=== PATIENT | male | born 1975 | race Caucasian/White ===

== ENCOUNTER 2018-11-11 12:02 | Inpatient (IN) ==
[2018-11-11 12:36] LABS: BILIRUBIN URINE NEGATIVE (NEGATIVE); BLOOD URINE NEGATIVE (NEGATIVE); CLARITY SL. CLOUDY (CLEAR); COLOR YELLOW; GLUCOSE URINE NEGATIVE (NEGATIVE); KETONE URINE NEGATIVE (NEGATIVE); LEUKOCYTES URINE TRACE (NEGATIVE); NITRITE URINE NEGATIVE (NEGATIVE); PH URINE 6.5; PROTEIN URINE TRACE mg/dL (NEGATIVE); UROBILINOGEN URINE NORMAL
[2018-11-11 12:37] LABS: URINE SOURCE CLEAN CATCH
[2018-11-11 12:42] LABS: URINE WBC <10 /HPF (<10)
[2018-11-11 12:46] LABS: URINE RBC <10 /HPF (<10)
[2018-11-11 12:49] LABS: URINE BACTERIA 1+ /HFP; URINE YEAST NONE SEEN /HPF
[2018-11-11 13:03] LABS: URINE CAST NONE SEEN /LPF
[2018-11-11 13:04] LABS: URINE CRYSTAL NONE SEEN /HPF; URINE EPITHELIAL CELLS <10 /HPF (<10)
[2018-11-11] MEDS ORDERED: NS 1,000 ML IV ONE (15:38)
[2018-11-11] MEDS ORDERED: TORADOL IV ONE (15:39)
[2018-11-11] MEDS ORDERED: ZOSYN 3.375 GM in NS 50 ML IV ONE ×2 (16:04→16:36)
--- NOTE | 2018-11-11 16:05 | Diag Imaging Result Doc PS360 ---
EXAM: CT ABDOMEN/PELVIS W/O CONTRAST HISTORY: L flank pain; LLQ pain TECHNIQUE: CT abdomen and pelvis without contrast. COMPARISON: None. FINDINGS: There is fatty infiltration of the liver no calcified gallstones or adjacent inflammation normal spleen, pancreas, and adrenal glands. Normal kidneys. No hydronephrosis. Normal aorta. There are prominent inflammatory changes noted the junction of the descending and sigmoid colon. There are scattered diverticula in this location. There is a poorly defined area containing fluid and air at the inflammatory site measuring 3.8 x 4.5 cm. No bowel obstruction. Urinary bladder is not distended. IMPRESSION: Diverticulitis at the junction of the descending and sigmoid colon with focal perforation and likely developing abscess. This report was discussed with Dr Hendricks in the [place] emergency room on 11/11/2018 at 4:00 PM and was readback. This exam was performed using automated exposure control, adjustment of mA or kV according to patient size, and/or use of iterative reconstruction technique. Electronically signed by Sreedhar Dubois 11/11/2018 4:02 PM
--- NOTE | 2018-11-11 16:10 | PROVIDER DOCUMENTATION ---
This chart was entered by Pura Avilez Scribe, acting as scribe for Leeann Franklin CRNP. HPI-Male Problem - General Source: patient - History of Present Illness-Male Location of Complaint: reports: left flank Radiation: reports: LLQ Quality of Pain: reports: burning Severity in ED: reports: moderate Onset/Duration: reports: 1 week ago Timing: reports: still present, constant Context/Activities at Onset: reports: light activity Urinary Symptoms: reports: hesitancy Associated Symptoms: reports: denies symptoms Similar Symptoms Previously?: Yes Recently seen or treated by another doctor?: Yes <Leeann Franklin - Last Filed: 11/11/18 16:36> <Cody Andrews - Last Filed: 11/11/18 16:44> - General Chief Complaint: Flank Pain Stated Complaint: FLANK PAIN Time Seen by Provider: 11/11/18 15:19 Allergies/Adverse Reactions: Patient Allergies Allergy/AdvReac Type Severity Reaction Status Date / Time No Known Allergies Allergy Verified 11/11/18 12:13 Home Medications: Home Medication List Medication Instructions Recorded Confirmed Last Taken Type Gabapentin 300 mg PO TID 11/11/18 11/11/18 Unknown History Hydrocodone/Acetaminophen 1 tab PO TID 11/11/18 11/11/18 Unknown History [Hydrocodone-Acetamin 7.5-325] Ibuprofen 1 tab PO TID PRN 11/11/18 11/11/18 Unknown History Valacyclovir HCl [Valacyclovir] 1 tab PO TID 11/11/18 11/11/18 Unknown History - History of Present Illness-Male Nature of Presenting Problem: Patient is a 43 year old male who presents to the ED with left flank pain rad around to LLQ. Patient states pain started 1 week ago. Patient denies history of kidney stones. Seen by pcp, dx with shingles, given pain meds, states the pain meds are helping, but still having pain, at times breaks out into a sweat. Denies n/v. Denies fever. Denies painful urination, but states difficulty getting stream started at times. (Leeann Franklin) Patient is a 43 year old male who presents to the ED with left flank pain rad around to LLQ. Patient states pain started 1 week ago. Patient denies history of kidney stones. Seen by pcp, dx with shingles, given pain meds, states the pain meds are helping, but still having pain, at times breaks out into a sweat. Denies n/v. Denies fever. Denies painful urination, but states difficulty getting stream started at times. (Pura Avilez) Review of Systems - Adult - REVIEW OF SYSTEMS - ADULT Constitutional: denies: fever Eyes: reports: no symptoms reported Ears, Nose, Mouth & Throat: reports: no symptoms reported Cardiovascular: reports: no symptoms reported Respiratory: reports: no symptoms reported Gastrointestinal: reports: abdominal pain. denies: vomiting Genitourinary: reports: flank pain (left), hesitency. denies: dysuria, hematuria Musculoskeletal: reports: no symptoms reported Integumentary: reports: no symptoms reported Neurological: reports: no symptoms reported Psychiatric: reports: no symptoms reported Endocrine: reports: no symptoms reported Hematologic/Lymphatic: reports: no symptoms reported Allergic/Immunologic: reports: no symptoms reported All Other Systems: Reviewed and Negative <Leeann Franklin - Last Filed: 11/11/18 16:36> Past History - Adult - PAST MEDICAL HISTORY-ADULT Review of Records: reports: Nursing Assessment Review, Medications Reviewed, Social history reviewed & non-contributory. Major Childhood Illnesses: reports: denies history Cardiovascular: reports: HTN Respiratory: reports: denies history Gastrointestinal: reports: denies history Obstetrical/Gynecological: reports: denies history Genitourinary: reports: denies history Musculoskeletal: reports: denies history Neurological: reports: denies history Psychiatric: reports: denies history Endocrine/Immune: reports: denies history Other Conditions: reports: denies history - PRIOR SURGERIES/PROCEDURES Surgical/Procedure History: reports: appendectomy - IMMUNIZATION STATUS Childhood Immunizations: See Nurse Assessment Flu Vaccine: See Nurse Assessment - FAMILY HISTORY Family History: reviewed, not pertinent - SOCIAL HISTORY Smoking: cigarettes, less than 1 pack/day Provider spent 3-5 mins advising pt. on dangers of tobacco.: Discussed manners to quit use, and f/u contacts for add'l counseling. Substance Use: alcohol Alcohol Use Frequency: every day Number of drinks per typical drinking period:: 3-4 drinks Living Situation: family <Leeann Franklin - Last Filed: 11/11/18 16:36> Physical Exam-General - PHYSICAL EXAM-ADULT Initial Vital Signs Reviewed: Yes - CONSTITUTIONAL General Appearance: alert, mild distress - EYES Eyes: PERRL/EOMI, pink conjunctivae - HEAD, EARS, NOSE, MOUTH & THROAT HENMT: normocephalic/atraumatic, moist mucous membranes - NECK Neck: supple - RESPIRATORY Respiratory: chest non-tender, lungs clear, normal breath sounds - CARDIOVASCULAR Cardiovascular: normal peripheral pulses, regular rate, rhythm - GASTROINTESTINAL (ABDOMEN) Abdominal Exam: normal bowel sounds, soft, tenderness (LLQ, mild) - MUSCULOSKELETAL Back Exam: normal inspection, no CVA tenderness, no vertebral tenderness - SKIN Integumentary: normal color, normal turgor, warm/dry, diaphoresis (mild) - NEUROLOGIC Neurologic: grossly normal - PSYCHIATRIC Psych/Mental Status: normal mood/affect, oriented x 3 <Leeann Franklin - Last Filed: 11/11/18 16:36> Progress - PLAN OF CARE/RESULTS Result Diagrams: 11/11/18 16:05 - CT/MRI 1 CT Study: Abdomen, Pelvis Impression: See EMR Report ( EXAM: CT ABDOMEN/PELVIS W/O CONTRAST HISTORY: L flank pain; LLQ pain TECHNIQUE: CT abdomen and pelvis without contrast. COMPARISON: None. FINDINGS: There is fatty infiltration of the liver no calcified gallstones or adjacent inflammation normal spleen, pancreas, and adrenal glands. Normal kidneys. No hydronephrosis. Normal aorta. There are prominent inflammatory changes noted the junction of the descending and sigmoid colon. There are scattered diverticula in this location. There is a poorly defined area containing fluid and air at the inflammatory site measuring 3.8 x 4.5 cm. No bowel obstruction. Urinary bladder is not distended. IMPRESSION: Diverticulitis at the junction of the descending and sigmoid colon with focal perforation and likely developing abscess. This report was discussed with Dr Hendricks in the [place] emergency room on 11/11/2018 at 4:00 PM and was readback. This exam was performed using automated exposure control, adjustment of mA or kV according to patient size, and/or use of iterative reconstruction technique. Electronically signed by Sreedhar Dubois 11/11/2018 4:02 PM 11/11/18 [id number] Interpreting Physician: Sreedhar Dubois MD Dictated Date/Time: 11/11/18 0010 cc: Leeann Franklin; Ren Coleman MD) - CONSULTS/PCP/HOSPITALIST Notification #1 *Consult/PCP/Hospitalist*: Dr. Dubois Time Discussed: 16:03 Reason/Comments: Dr. Hendricks consulted with Dr. Dubois about patient's CT scan. Consult Disposition: other (Dr. Dubois states perforation, possible abscess, free air and diverticulitis) - CHANGE OF SHIFT REPORT (ED Provider) Report Given and Care Transferred to:: [id number]--care transferred to Cody Andrews NP. Time of Transfer: 16:10 <Leeann Franklin - Last Filed: 11/11/18 16:36> - PLAN OF CARE/RESULTS Result Diagrams: 11/11/18 16:05 - CONSULTS/PCP/HOSPITALIST Notification #2 Consult: Dr Hendricks spoke with oncall surgeon Dr Pepe Time Discussed: 16:32 (will review CT scan and call back) Reason/Comments: Called back stating to admit to [facility] and order Zosyn IV Consult Disposition: Admit <Cody Andrews - Last Filed: 11/11/18 16:44> - PLAN OF CARE/RESULTS Progress/Plan/Lab Results: Vital Signs - 8 hr 11/11/18 12:06 11/11/18 16:12 Temperature 98.8 F Pulse Rate 99 H 90 Respiratory Rate 18 18 Blood Pressure 130/95 131/87 O2 Sat by Pulse Oximetry 97 95 Laboratory Results - last 24 hr 11/11/18 11/11/18 12:15 16:05 WBC 17.17 H RBC 4.85 Hgb 14.8 Hct 42.0 MCV 86.6 MCH 30.5 MCHC 35.2 RDW Std Deviation 12.0 Plt Count 335 MPV 9.1 Immature Gran % (Auto) 0.3 Neut % (Auto) 70.5 Lymph % (Auto) 15.0 L [place] % (Auto) 12.0 H Eos % (Auto) 2.0 Baso % (Auto) 0.2 Immature Gran # (Auto) 0.05 H Neut # (Auto) 12.11 H Lymph # (Auto) 2.58 [place] # (Auto) 2.06 H Eos # (Auto) 0.34 Baso # (Auto) 0.03 Urine Source CLEAN CATCH Urine Color YELLOW Urine Clarity SL. CLOUDY A Urine pH 6.5 Ur Specific [place] 1.010 Urine Protein TRACE A Urine Ketones NEGATIVE Urine Blood NEGATIVE Urine Nitrite NEGATIVE Urine Bilirubin NEGATIVE Urine Urobilinogen NORMAL Urine Microscopic RBC <10 Urine WBC TRACE A Urine Microscopic WBC <10 Ur Epithelial Cells <10 Urine Crystals NONE SEEN Urine Bacteria 1+ Urine Casts NONE SEEN Urine Yeast NONE SEEN Urine Glucose NEGATIVE Orders Category Date Time Status Saline Loc NOW Care 11/11/18 15:[address] ABDOMEN/PELVIS W/O CONTRAST [CT] Stat Exams 11/11/18 15:38 Completed BLOOD CULTURE [BLDCUL] Stat Lab 11/11/18 16:23 Ordered CBC WITH ELECTRONIC DIFF [HEME] Stat Lab 11/11/18 16:05 Completed COMPREHENSIVE METABOLIC PANEL [CHEM] Stat Lab 11/11/18 16:[address] W/POSS RFLX CULT [URINALYSIS] Stat Lab 11/11/18 12:15 Completed URINE CULTURE [RM] Routine Lab 11/11/18 13:04 Received 0.9% Sodium Chloride Inj [Ns] 1,000 ml Med 11/11/18 15:38 Discontinued IV 999 mls/hr Ketorolac [Toradol] Med 11/11/18 15:39 Discontinued 10 mg IV NOW ONE Piperacillin/Tazobactam [Zosyn] 3.375 gm Med 11/11/18 16:04 Discontinued 0.9% Sodium Chloride Inj [Ns] 50 ml IV NOW Piperacillin/Tazobactam [Zosyn] 3.375 gm Med 11/11/18 16:36 Active 0.9% Sodium Chloride Inj [Ns] 50 ml IV NOW Transfer/Admit Order [TRANSFER] Routine Transfer 11/11/18 16:37 Ordered Departure <Leeann Franklin - Last Filed: 11/11/18 16:36> - Departure Date of Disposition Decision: 11/11/18 Time of Disposition Decision: 16:38 Certified Medical Emergency: Emergent - Critical Care Note This patient required my direct & personal management of CC.: No <Cody Andrews - Last Filed: 11/11/18 16:44> - Departure DIAGNOSIS: Abscess of sigmoid colon Disposition: [facility] 02 Condition: Fair Referrals and Follow-Ups: Ren Coleman MD [Primary Care Provider] - Attestation - Physician/ JOHNATHAN Attestation Patient care was provided by Advanced Practice Provider:: Yes Advanced Practice Provider:: Leeann Franklin Advanced Practice Provider documentation review:: The Mid-level provider documentation, treatment plan and medical decision making was reviewed by the physician who agrees with all treatment and medical decision making by the MLP. The physician spent face to face time with patient:: No Advanced Practice Provider documentation review:: Supervising physician onsite and consulted in the evaluation and care of this patient. The physician did not have a face to face encounter with the patient. <Leeann Franklin - Last Filed: 11/11/18 16:36> - Physician/ JOHNATHAN Attestation The physician spent face to face time with patient:: Yes Advanced Practice Provider documentation review:: Supervising physician onsite and consulted in the evaluation and care of this patient. The physician did have a face to face encounter with the patient. <Cody Andrews - Last Filed: 11/11/18 16:44> This chart was documented by the indicated scribe, (Pura Avilez Scribe) and accurately reflects the services I performed and decisions made by Rigoberto miller Erica D., CRNP, as attested by the provider's signature.
[2018-11-11 16:25] LABS: BASO# 0.03 X1000 (0.0-0.2); BASO% 0.2 % (0.0-0.8); EOS# 0.34 X1000 (0.0-0.7); HEMOGLOBIN 14.8 g/dL (14.0-18.0); IMM GRAN# 0.05 X1000 (0.0-0.04); IMM GRAN% 0.3 % (0.0-0.5); LYMPH# 2.58 X1000 (1.2-3.4); MCH 30.5 PG (27-31); MCHC 35.2 g/dL (33-37); MCV 86.6 FL (81-99); MONO# 2.06 X1000 (0.11-0.59); MPV 9.1 FL (7.4-10.4); NEUT# 12.11 X1000 (1.4-6.5); NEUT% 70.5 % (42.2-75.2); PLT 335 X1000 (130-400); RBC 4.85 XMIL (4.7-6.1); WBC 17.17 X1000 (4.8-10.8)
[2018-11-11 16:50] LABS: AGAP 12; ALBUMIN 3.6 g/dL (3.5-5.0); ALKALINE PHOSPHATASE 83 U/L (32-122); BUN 8 mg/dL (8-22); CHLORIDE 99 mmol/L (98-107); COSMO 273; CREATININE 0.8 mg/dL (0.7-1.2); ESTIMATED GFR > 60; GLUCOSE 108 mg/dL (70-104); GOT 11 U/L (10-34); GPT 15 U/L (10-44); POTASSIUM 4.1 mmol/L (3.5-5.1); SODIUM 137 mmol/L (136-145); TCO2 26 mmol/L (25-35); TOTAL PROTEIN 7.1 g/dL (6.3-8.3)
[2018-11-11] MEDS: FLAGYL 500 MG/NS 500 MG/100 ML IVPB IV SCH (19:54)
[2018-11-11] MEDS: D5 1/2 NS + KCL 20 MEQ 1,000 ML IV SCH (19:54)
[2018-11-11] MEDS: MORPHINE IV PRN (19:54)
--- NOTE | 2018-11-11 20:41 | HISTORY AND PHYSICAL ---
CHIEF COMPLAINT: Abdominal pain. HISTORY OF PRESENT ILLNESS: This is a 43-year-old male who began having moderately severe left lower quadrant pain 1 week ago. He went to see his primary care doctor who prescribed him valacyclovir for possible shingles. The pain has persisted throughout the weekend and early part of this week, although it has been controlled with Watrous and ibuprofen. He has had some chills, decreased appetite. No nausea, vomiting. No diarrhea or constipation. The pain is not worsened with anything particular. PAST MEDICAL HISTORY: Hypertension. HOME MEDICATIONS: Amlodipine 5 mg p.o. daily. ALLERGIES: Penicillin. PAST SURGICAL HISTORY: Appendectomy, benign subcutaneous mass excision from the neck. SOCIAL HISTORY: He smokes about a pack per day. He drinks 2 to 4 alcoholic drinks per day. He works as a lead machinist. FAMILY HISTORY: Reviewed and noncontributory. REVIEW OF SYSTEMS: Ten systems reviewed negative except as noted above. PHYSICAL EXAMINATION: VITAL SIGNS: Temperature 98.3 degrees, pulse 93, respirations 18, blood pressure 131/89, O2 saturation 98%. GENERAL: Well-developed, well-nourished male in no distress who looks stated age. HEENT: Normocephalic, atraumatic. Extraocular muscles intact. Pupils equal, round, reactive to light. Sclerae anicteric. Moist mucous membranes. No oral lesions. NECK: Supple. No thyromegaly. CV: Regular rate and rhythm. RESPIRATORY: Bilateral equal breath sounds. No work of breathing. GASTROINTESTINAL: Soft, nondistended. No organomegaly or mass. He is obese. He is tender in the left lower quadrant. No rebound or guarding. No hernias. EXTREMITIES: No clubbing, cyanosis, or edema. SKIN: Warm and dry. No rash. MUSCULOSKELETAL: Moves all extremities equally well. LABORATORY: White cell count 17,000, hemoglobin 14.8, platelet count 335,000. Complete metabolic profile reviewed and unremarkable. Urinalysis negative. IMAGING: CT of abdomen and pelvis shows inflammatory changes around the descending and sigmoid colon with scattered diverticula and a extraluminal collection of fluid and air measuring 3.8 x 4.5 cm. ASSESSMENT AND PLAN: A 43-year-old male with diverticulitis and pericolic abscess. He will be admitted, started on IV antibiotics and we will plan percutaneous CT-guided drainage of the abscess tomorrow. If he improves we will continue with conservative care and discharge him home soon. If he fails to improve then he will need a segmental sigmoid resection. cc: Gerard Pepe MD
[2018-11-11] MEDS: LEVAQUIN 750 MG/D5W 750 MG/150 ML IVPB IV SCH (22:44)
[2018-11-12] MEDS: FLAGYL 500 MG/NS 500 MG/100 ML IVPB IV SCH ×4 (02:50→21:21)
[2018-11-12] MEDS: MORPHINE IV PRN ×5 (02:50→22:59)
[2018-11-12 05:55] LABS: BASO# 0.03 X1000 (0.0-0.2); BASO% 0.2 % (0.0-0.8); EOS# 0.36 X1000 (0.0-0.7); EOS% 2.8 % (0.0-10.0); HEMOGLOBIN 13.7 g/dL (14.0-18.0); IMM GRAN# 0.03 X1000 (0.0-0.04); IMM GRAN% 0.2 % (0.0-0.5); LYMPH% 18.5 % (20.5-51.1); MCH 30.5 PG (27-31); MCHC 35.1 g/dL (33-37); MCV 86.9 FL (81-99); MONO# 1.48 X1000 (0.11-0.59); MONO% 11.4 % (1.7-9.3); MPV 9.2 FL (7.4-10.4); NEUT# 8.69 X1000 (1.4-6.5); NEUT% 66.9 % (42.2-75.2); PLT 320 X1000 (130-400); RBC 4.49 XMIL (4.7-6.1); RDW 11.8 % (11.5-14.5); WBC 12.99 X1000 (4.8-10.8)
[2018-11-12 06:13] LABS: INR 1.03; PROTIME 14.3 Seconds (11.0-16.0); PTT 32.1 Seconds (22.3-41.8)
[2018-11-12 06:46] LABS: AGAP 11; ALB/GLOB RATIO 1.3; ALBUMIN 3.5 g/dL (3.5-5.0); ALKALINE PHOSPHATASE 70 U/L (32-122); BUN 7 mg/dL (8-22); CALCIUM 8.7 mg/dL (8.8-10.2); CHLORIDE 101 mmol/L (98-107); CK PROFILE 42 U/L (24-204); COSMO 271; CREATININE 0.7 mg/dL (0.7-1.2); ESTIMATED GFR > 60; GLUCOSE 115 mg/dL (70-104); GOT 9 U/L (10-34); GPT 12 U/L (10-44); POTASSIUM 3.9 mmol/L (3.5-5.1); SODIUM 136 mmol/L (136-145); TCO2 24 mmol/L (25-35); TOTAL BILIRUBIN 0.42 mg/dL (0.20-1.00); TOTAL PROTEIN 6.2 g/dL (6.3-8.3)
--- NOTE | 2018-11-12 07:23 | Diag Imaging Result Doc PS360 ---
EXAM: CHEST-1 VIEW INDICATION: sepsis protocol TECHNIQUE: One view COMPARISON: None. FINDINGS: There is minimal elevation of the right hemidiaphragm. The lungs are grossly clear. There is no discrete pleural fluid collection or pneumothorax. The cardiomediastinal silhouette and central vasculature are grossly unremarkable. IMPRESSION: No evidence of acute pathology by plain radiograph. Electronically signed by Dar Awan 11/12/2018 7:21 AM
[2018-11-12] MEDS: NORVASC PO SCH ×2 (07:50→08:19)
--- NOTE | 2018-11-12 11:04 | Diag Imaging Result Doc PS360 ---
EXAM: CT DRAIN ABDOMEN ABSCESS W/IMG 11/12/2018 HISTORY: abdmominal abscess TECHNIQUE: CT-guided percutaneous drainage of paracolic abscess in the left iliac fossa. COMMENT: The risks and benefits of the procedure including the possibility of bleeding, infection, reaction to lidocaine or puncture of hollow viscus was discussed with the patient and he agreed to the procedure. Following sterile preparation of the skin posterior laterally and administration 1% lidocaine to the skin and deeper soft tissues a 12-German cope loop catheter was inserted by trocar technique into the abscess cavity which was demonstrated on the previous study of 11/11/2018. Purulent material was obtained and this was sent to the laboratory for Gram stain and cultures. The catheter was secured with its self retaining loop and a adhesive device on the skin. There are no immediate complications. IMPRESSION: Successful CT-guided percutaneous abscess drainage. Electronically signed by Bakari Velasco 11/12/2018 11:02 AM
--- NOTE | 2018-11-12 15:45 | GENERAL SURGERY PROGRESS NOTE ---
DATE: 11/12/2018 SUBJECTIVE: The patient feels a lot better status post percutaneous drainage of pericolic abscess. He is tolerating a clear liquid diet. OBJECTIVE: Vital Signs: He is afebrile. Vital signs are stable. General: He is awake and alert, no acute distress. Gastrointestinal: Soft, nondistended. Mildly tender in the left lower quadrant. Accordion drain with purulent fluid in the tubing. LABORATORY DATA: White cell count 12.9, hemoglobin 13.7, hematocrit 39. Electrolytes reviewed and unremarkable. ASSESSMENT AND PLAN: A 43-year-old male with pericolic abscess, likely secondary to diverticulitis. He is improving. He is status post percutaneous drainage. Tomorrow, if he is stable, I will discharge him with the drain and oral antibiotics, to follow up with me next week for repeat scanning. cc: Gerard Pepe MD
[2018-11-12] MEDS: D5 1/2 NS + KCL 20 MEQ 1,000 ML IV SCH (18:40)
[2018-11-12] MEDS: LEVAQUIN 750 MG/D5W 750 MG/150 ML IVPB IV SCH (22:59)
[2018-11-13] MEDS: FLAGYL 500 MG/NS 500 MG/100 ML IVPB IV SCH ×2 (02:03→09:04)
[2018-11-13 06:15] LABS: BASO# 0.04 X1000 (0.0-0.2); BASO% 0.4 % (0.0-0.8); EOS# 0.37 X1000 (0.0-0.7); EOS% 3.7 % (0.0-10.0); HEMATOCRIT 41.7 % (42.0-52.0); HEMOGLOBIN 14.5 g/dL (14.0-18.0); IMM GRAN# 0.03 X1000 (0.0-0.04); IMM GRAN% 0.3 % (0.0-0.5); LYMPH# 2.19 X1000 (1.2-3.4); LYMPH% 21.7 % (20.5-51.1); MCH 29.8 PG (27-31); MCHC 34.8 g/dL (33-37); MCV 85.8 FL (81-99); MONO# 1.08 X1000 (0.11-0.59); MONO% 10.7 % (1.7-9.3); NEUT# 6.36 X1000 (1.4-6.5); NEUT% 63.2 % (42.2-75.2); PLT 362 X1000 (130-400); RBC 4.86 XMIL (4.7-6.1); RDW 11.7 % (11.5-14.5); WBC 10.07 X1000 (4.8-10.8)
[2018-11-13 07:51] VITALS: BP 124/87
[2018-11-13] MEDS: NORVASC PO SCH (09:04)
== END 2018-11-13 09:54 | disposition home or self-care (01) | DRG 392 ==
LOC: P.ED 12:02 → 4N 12:03
PROVIDERS: ADMIT Surgery; ATTEND Surgery
CPT/HCPCS: 49041; 49405; 49406; 71010; 71045; 74176; 80053; 81001; 82550; 83605; 84484; 85025; 85610; 85730; 87040; 87070; 87075; 87076; 87077; 87088; 87186; 87205; 94761; 96365; 96375; 99285; A9270; J1885; J1956; J2270; J2543; J3480; J7030; S0030